=== PATIENT | male | born 1960 | race Caucasian/White ===

== ENCOUNTER 2018-11-30 08:01 | Inpatient (IN) | payer OTHER ==
[2018-11-30 08:27] LABS: ADD MAN DIFF? NO
[2018-11-30 08:29] LABS: BASOPHIL # 0.1 10^3/ul (0.0-0.1); BASOPHILS % 0.7 % (0.0-2.0); EOSINOPHILS # 0.3 10^3/ul (0.0-0.5); EOSINOPHILS % 3.3 % (0.0-7.0); HEMATOCRIT 42.3 % (42.0-52.0); HEMOGLOBIN 14.3 g/dl (14.0-18.0); LYMPHOCYTES # 1.8 10^3/ul (0.8-2.9); LYMPHOCYTES % 21.5 % (15.0-51.0); MEAN CORPUSCULAR HEMOGLOBIN 34.5 pg (29.0-33.0); MEAN CORPUSCULAR HGB CONC 33.8 g/dl (32.0-37.0); MEAN CORPUSCULAR VOLUME 102.2 fl (82.0-101.0); MEAN PLATELET VOLUME 8.9 fl (7.4-10.4); MONOCYTE # 0.6 10^3/ul (0.3-0.9); MONOCYTES % 7.2 % (0.0-11.0); NEUTROPHIL # 5.5 10^3/ul (1.6-7.5); NEUTROPHILS % 66.8 % (39.0-77.0); PLATELET COUNT 295 10^3/UL (140-415); RED BLOOD COUNT 4.14 10^6/ul (4.70-6.10); RED CELL DISTRIBUTION WIDTH 12.2 % (11.5-14.5)
[2018-11-30 08:29] LABS: WHITE BLOOD COUNT 8.2 10^3/ul (4.8-10.8)
[2018-11-30] MEDS: ASPIRIN 325 MG TAB PO (08:34)
[2018-11-30 08:52] LABS: ALANINE AMINOTRANSFERASE 44 IU/L (13-69); ALBUMIN 4.2 g/dl (3.3-4.9); ALBUMIN/GLOBULIN RATIO 1.13; ALKALINE PHOSPHATASE 56 IU/L (42-121); ANION GAP 9 (5-13); ASPARTATE AMINO TRANSFERASE 42 IU/L (15-46); BILIRUBIN,INDIRECT 0.1 mg/dl (0-1.1); BILIRUBIN,TOTAL 0.1 mg/dl (0.2-1.3); BLOOD UREA NITROGEN 18 mg/dl (7-20); CALCIUM 9.8 mg/dl (8.4-10.2); CARBON DIOXIDE 27 mmol/L (21-31); CHLORIDE 105 mmol/L (97-110); CREATININE 0.75 mg/dl (0.61-1.24); Estimated GFR > 60 mL/min (>60); GLUCOSE 160 mg/dl (70-220); POTASSIUM 4.6 mmol/L (3.5-5.1); SODIUM 141 mmol/L (135-144); TOTAL PROTEIN 7.9 g/dl (6.1-8.1)
[2018-11-30] MEDS ORDERED: NITROGLYCERIN 0.4 MG/HR PATCH TRANSDERM (09:00)
[2018-11-30] MEDS ORDERED: NITROGLYCERIN 0.2 MG/HR PATCH TRANSDERM (09:00)
[2018-11-30] MEDS: NITROGLYCERIN 2% 1 GM OINT PKT TD (09:00)
[2018-11-30 09:03] LABS: TROPONIN-I 0.064 ng/ml (0.000-0.120)
[2018-11-30] MEDS ORDERED: FENTAnyl 50 MCG/ML VIAL (09:08)
[2018-11-30] MEDS ORDERED: VERAPAMIL 5 MG INJ (09:08)
[2018-11-30] MEDS ORDERED: NITROGLYCERIN (IC) 100 MCG/ML INJ (09:08)
[2018-11-30] MEDS ORDERED: HEPARIN 1000 UNITS/ML 10 ML INJ (09:08)
[2018-11-30] MEDS ORDERED: IODIXANOL LOCM 100 ML BTL (09:08)
[2018-11-30] MEDS ORDERED: MIDAZOLAM 1 MG/ML 2 ML INJ (09:08)
[2018-11-30] MEDS ORDERED: LIDOCAINE 1% (MDV) 20 ML INJ (09:08)
[2018-11-30] MEDS ORDERED: TICAGRELOR 90 MG TABLET (09:37)
[2018-11-30] MEDS ORDERED: BIVALIRUDIN 250MG /NS 50 ML 100 ML IVPB (09:58)
[2018-11-30] MEDS ORDERED: ACETAMINOPHEN 325 MG TAB PO (10:00)
[2018-11-30] MEDS ORDERED: ZOLPIDEM 5 MG TAB PO (10:00)
[2018-11-30] MEDS ORDERED: DOCUSATE SODIUM 100 MG CAP PO (10:00)
[2018-11-30] MEDS ORDERED: NACL 0.9% 3 ML SYG IV (10:00)
[2018-11-30] MEDS ORDERED: ONDANSETRON 4 MG INJ IV (10:00)
[2018-11-30] MEDS ORDERED: morphine 2 MG INJ IV ×2 (10:00→11:00)
[2018-11-30] MEDS: BIVALIRUDIN 250MG /NS 50 ML 50 ML IVPB ×2 (11:22→12:39)
[2018-11-30] MEDS: SOD CHLORIDE 0.9% 1,000 ML IV ×2 (11:25→21:13)
[2018-11-30 12:58] LABS: CREATINE KINASE 142 IU/L (23-200)
[2018-11-30 13:12] LABS: CK INDEX 1.7; CK-MB 2.38 ng/ml (0.0-2.4)
[2018-11-30 13:19] LABS: TROPONIN-I 0.177 ng/ml (0.000-0.120)
[2018-11-30] MEDS ORDERED: DIGOXIN 500 MCG INJ IV (14:00)
[2018-11-30] MEDS: FAMOTIDINE 20 MG TAB PO ×2 (15:58→20:35)
[2018-11-30] MEDS: METOPROLOL (XL) 50 MG TAB PO (15:58)
[2018-11-30] MEDS: TICAGRELOR 90 MG TABLET PO (20:34)
[2018-11-30] MEDS: ATORVASTATIN 80 MG TAB PO (20:35)
[2018-11-30] MEDS ORDERED: TICAGRELOR 90 MG TABLET PO (21:00)
[2018-11-30 21:09] LABS: CREATINE KINASE 133 IU/L (23-200)
[2018-11-30 21:34] LABS: CK-MB 3.93 ng/ml (0.0-2.4); TROPONIN-I 0.538 ng/ml (0.000-0.120)
[2018-12-01 05:34] LABS: HEMOGLOBIN A1C 5.8 % (0-5.9)
[2018-12-01] MEDS: METOPROLOL (XL) 50 MG TAB PO (08:50)
[2018-12-01] MEDS: ASPIRIN 81 MG TAB PO (08:50)
[2018-12-01] MEDS: LOSARTAN 50 MG TAB PO (08:51)
[2018-12-01] MEDS ORDERED: ASPIRIN 81 MG TAB PO (09:00)
[2018-12-01] MEDS ORDERED: LOSARTAN 50 MG TAB PO (09:00)
[2018-12-01] MEDS: TICAGRELOR 90 MG TABLET PO ×2 (09:01→21:57)
[2018-12-01] MEDS: FAMOTIDINE 20 MG TAB PO ×2 (10:52→21:51)
[2018-12-01] MEDS: ATORVASTATIN 80 MG TAB PO (21:50)
[2018-12-02] MEDS: LOSARTAN 50 MG TAB PO (08:33)
[2018-12-02] MEDS: FAMOTIDINE 20 MG TAB PO (08:33)
[2018-12-02] MEDS: ASPIRIN 81 MG TAB PO (08:33)
[2018-12-02] MEDS: METOPROLOL (XL) 50 MG TAB PO (08:33)
[2018-12-02] MEDS: TICAGRELOR 90 MG TABLET PO (08:36)
[2018-12-05] MEDS ORDERED: INFLUENZA VIRUS VACCINE 0.5 ML (DISPENSING) IM* (10:00)
== END 2018-12-02 13:00 | disposition home or self-care (01) | DRG 247 ==
LOC: TEL 12-01 11:15 → E/R 08:01 → ICU 08:59
PROC: 027135Z Dilation of Coronary Artery, Two Arteries with Two Drug-eluting Intraluminal Devices, Percutaneous Approach (ICD-10-PCS; principal; 2018-11-30 09:00)
PROC: 4A023N7 Measurement of Cardiac Sampling and Pressure, Left Heart, Percutaneous Approach (ICD-10-PCS; 2018-11-30 09:00)
PROC: B211YZZ Fluoroscopy of Multiple Coronary Arteries using Other Contrast (ICD-10-PCS; 2018-11-30 09:00)
DX: I21.19 ST elevation (STEMI) myocardial infarction involving other coronary artery of inferior wall (principal); Z68.43 Body mass index [BMI] 50.0-59.9, adult; I10 Essential (primary) hypertension; E78.5 Hyperlipidemia, unspecified; I25.10 Atherosclerotic heart disease of native coronary artery without angina pectoris; F17.200 Nicotine dependence, unspecified, uncomplicated; E66.9 Obesity, unspecified
CPT/HCPCS: 36415; 71045; 80053; 82550; 82553; 83036; 84484; 85025; 87081; 92928; 93005; 93306; 93458; 97161; 99291-25